=== PATIENT | female | born 2005 | race African-American/Black ===

== ENCOUNTER 2023-08-20 13:22 | Emergency (ER) | payer MEDICAID, SELFPAY ==
[2023-08-20 13:29] VITALS: BP 122/74; BP 124/74; PULSE 82; RESP 14; TEMP 36.3; O2SAT 100; O2SAT 97
--- NOTE | 2023-08-20 14:12 | EKG12_ITS ---
Test Reason : GENERAL Blood Pressure : / mmHG Vent. Rate : 070 BPM Atrial Rate : 070 BPM P-R Int : 150 ms QRS Dur : 102 ms QT Int : 414 ms P-R-T Axes : 036 030 027 degrees QTc Int : 447 ms Normal sinus rhythm with sinus arrhythmia Normal ECG Confirmed by Alli Corona ([id number]), news video editor ANGELA CHENG ([id number]) on 08/21/2023 11:18:47 AM Referred By: Confirmed By:Alli Corona
--- NOTE | 2023-08-20 14:13 | CT_ITS ---
STUDY: CT BRAIN WITHOUT CONTRAST REASON FOR EXAM: Female, 18 years old. Trauma RADIATION DOSAGE (If Supplied By Facility): CTDIvol = ( 44.99 ) mGy, DLP = ( 829.85 ) mGycm TECHNIQUE: Transaxial CT imaging of the brain was performed without administration of intravenous contrast material. Individualized dose optimization techniques were used for this CT. COMPARISON: No relevant prior comparison study available FINDINGS: PARENCHYMA: There is no acute bleed or infarct. There are normal white matter tracts. VENTRICLES: There is no hydrocephalus. MASTOID AIR CELLS AND PARANASAL SINUSES: There bilateral maxillary polyps versus mucous retention cysts, measuring 1.9 cm on the right and 1.0 cm on the left. The visualized paranasal sinuses are clear. The mastoid air cells are clear. BONES: There is no skull fracture. SOFT TISSUES: The visualized soft tissues are within normal limits. CT/Brain/Head without Contrast IMPRESSION: No acute intracranial abnormality. Polyp versus mucous retention cysts in the maxillary sinuses. Electronically Signed: Luciano Rodgers MD at 16:36 EDT ,
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
--- NOTE | 2023-08-20 14:14 | CT_ITS ---
INDICATION: Trauma EXAMINATION: CT CERVICAL SPINE - CT Spine Cervical W/ Contrast Injection TECHNIQUE: Helically acquired images were obtained of the cervical spine. 2D reformatted images were reviewed. A radiation dose optimization technique was used for this scan. IV Contrast dosage and agent: None. RADIATION DOSAGE (If Supplied By Facility): CTDIvol = ( 24.04 ) mGy, DLP = ( 484.84 ) mGycm COMPARISON: FINDINGS: VERTEBRAE: No fracture or traumatic subluxation. No discrete lytic or blastic abnormality. Normal alignment. Normal craniocervical junction and cervicothoracic junction. DISCS and SPINAL CANAL: Disc heights are preserved. No critical stenosis. NECK SOFT TISSUES: No prevertebral soft tissue swelling. There is no cervical adenopathy. LUNG APICES: Clear. CT/Spine Cervical without Contras IMPRESSION: No evidence of acute cervical spinal fracture or spondylolisthesis. Electronically Signed: Cayden Barbosa DO at 17:15 EDT Reading Location ID and State: [facility] / [place] Tel [phone], Service support ,
--- NOTE | 2023-08-20 14:16 | ED.RN ---
NO OLD EKG
[2023-08-20] MEDS: 0.9% Normal Saline (1000mL) 1,000 ML 999 ML IV (14:25)
[2023-08-20] MEDS: fentaNYL 100 MCG/2 ML Ampul 50 MCG IV (14:25)
[2023-08-20] MEDS: Ondansetron 4 MG/2 ML Vial IV (14:25)
[2023-08-20 14:35] LABS: Mucous, Urine 0 SEEN /hpf (<or=2+)
[2023-08-20 14:37] LABS: Color, Urine Yellow (Yellow); Glucose, Dipstick Normal (Normal); Ketone-Dipstick 5 mg/dl (Negative); Leukocyte Esterase-Dipstick 25 /ul (Negative); Nitrite-Dipstick Negative (Negative); Occult Blood-Urine 10 /ul (Negative); Protein-Dipstick 30 mg/dl (Negative); Specific Gravity, Urine 1.025 (1.002-1.030); Urine Bilirubin Dipstick Negative (Negative); Urine Clarity Sl. Cloudy (Clear); Urine Urobilinogen Normal (Normal)
[2023-08-20 14:39] LABS: Absolute Lymphocyte Count 2.02 X10^3/uL (0.83-4.51); Absolute Neutrophil Count 4.7 X10^3/uL (2.0-7.7); Basophil# 0.03 X10^3/uL; Basophil% 0.4 % (0-1); Eosinophil# 0.03 X10^3/uL; Eosinophils% 0.4 % (0-5); Hematocrit 39.2 % (37-47); Hemoglobin 12.5 g/dL (12.0-15.0); Lymphocyte # 2.02 X10^3/ul (0.83-4.51); Lymphocyte % 27.8 % (19-41); Mean Corp Hgb Conc 31.9 g/dL (32-36); Mean Corpuscular Hgb 25.8 pg (27.0-32.0); Mean Platelet Vol. 11.2 fl (6.2-12.0); Monocyte# 0.43 X10^3/uL; Monocyte% 5.9 % (0-10); NRBC Flagged by Analyzer 0 % (0-5); Neutrophil # 4.71 X10^3/uL (2.7-7.7); Neutrophil % 64.9 % (47-70); Platelet Count 204 K/mm3 (150-450); Red Blood Count 4.84 M/mm3 (4.2-5.4); White Blood Count 7.3 K/mm3 (4.4-11.0)
[2023-08-20 14:47] LABS: Bacteria 1+ /hpf (None Seen); Red Blood Cells-Urine 0-5 SEEN /hpf (0-5); Squamous Epithelial Cells - UA 5-10 SEEN /hpf (5-10); White Blood Cells 0-5 SEEN /hpf (0-5)
[2023-08-20 15:00] VITALS: BP 113/79; PULSE 99; RESP 12; O2SAT 98
[2023-08-20 15:00] LABS: Anion Gap 6 (5-15); BUN 8 mg/dL (7-18); BUN/Creat Ratio 9.2 RATIO (10-20); Chloride 110 mmol/L (98-107); Creatinine, Serum 0.87 mg/dL (0.55-1.02); EST Glomerular Filtration Rate 89 mL/min (>60); Est Glom Filt Rate - Afr Amer 107 mL/min (>60); Glucose 90 mg/dL (74-106); Potassium 3.7 mmol/L (3.5-5.1); Sodium Level 142 mmol/L (136-145)
[2023-08-20 15:05] LABS: AST(SGOT) 17 U/L (15-37); Alanine Aminotransfer ALT/SGPT 32 U/L (13-56); Alkaline Phosphatase 94 U/L (45-117); Bilirubin, Direct < 0.05 mg/dL (0.00-0.30); Globulin 3.6 g/dL (2.2-4.2); Protein, Total 7.6 g/dL (6.4-8.2)
[2023-08-20 15:06] LABS: Internal QC Validated? YES +Cl - CLEAR BKGD; Pregnancy, Urine Negative Negative; Record Kit Lot#,Urine Preg HCG0000718086
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
--- NOTE | 2023-08-20 15:55 | RAD_ITS ---
STUDY: X-RAY - LEFT KNEE REASON FOR EXAM: Female, 18 years old. Trauma TECHNIQUE: 4 view(s) of the knee. COMPARISON: None. FINDINGS: There is no evidence of fracture or dislocation. There are no significant degenerative changes. There are no radiodense foreign bodies. RAD/Knee 4 or More Views IMPRESSION: No fracture or dislocation. Electronically Signed: Luciano Rodgers MD at 16:42 EDT ,
[2023-08-20] MEDS: Ketorolac 15 MG/ML Vial IV (16:38)
[2023-08-20 16:41] VITALS: BP 121/81; PULSE 84; RESP 14; TEMP 36.2; O2SAT 100
== END 2023-08-20 16:42 | disposition home or self-care (01) ==
PROVIDERS: Emergency Provider Emergency Medicine; PCP Registered Nurse; Visit Provider Emergency Medicine
DX: S09.90XA Unspecified injury of head, initial encounter (principal); S16.1XXA Strain of muscle, fascia and tendon at neck level, initial encounter; R11.0 Nausea; S80.02XA Contusion of left knee, initial encounter; V59.49XA Driver of pick-up truck or van injured in collision with other motor vehicles in traffic accident, initial encounter; W22.10XA Striking against or struck by unspecified automobile airbag, initial encounter; Y92.410 Unspecified street and highway as the place of occurrence of the external cause
CPT/HCPCS: 70450; 71260; 72125; 73564; 74177; 80048; 80076; 81001; 81025; 85025; 93005; 96361; 96374; 96375; 99284; J7030; Q9967; J2405

== ENCOUNTER → 2024-04-14 | Outpatient (CLI) | payer MEDICAID, SELFPAY ==
--- NOTE | 2024-04-14 18:44 | RAD_ITS ---
STUDY: X-RAY CHEST REASON FOR EXAM: Female, 18 years old. COUGH, SOB, FEVER TECHNIQUE: PA and lateral COMPARISON: None. FINDINGS: Patchy areas of increased density right lower lobe which may be consistent with focal infiltrate. There is no demonstrated pleural abnormality. Normal size heart. Normal mediastinum and david. Normal visualized pulmonary arteries. Normal visualized aortic arch and descending thoracic aorta. Normal visualized thoracic spine. Normal visualized ribs, clavicles, and shoulders. There is no demonstrated abnormality of the visualized soft tissue structures of the upper abdomen. RAD/Chest PA and Lateral IMPRESSION: Mild right lower lobe infiltrate which may be consistent with pneumonia. Electronically Signed: Jabari Salcedo MD at 20:04 [facility] ,
== END | disposition home or self-care (01) ==
LOC: RAD 18:44
PROVIDERS: PCP Registered Nurse; Visit Provider Nurse Practitioner Family
DX: J06.9 Acute upper respiratory infection, unspecified (principal)
CPT/HCPCS: 71046

== ENCOUNTER 2024-04-17 09:40 | Emergency (ER) | payer MEDICAID, SELFPAY ==
[2024-04-17 09:40] VITALS: BP 131/89; BP 142/76; PULSE 121; PULSE 133; RESP 25; RESP 26; TEMP 37.3; O2SAT 93; O2SAT 94; BMI 35.0
[2024-04-17] MEDS: Acetaminophen 500 MG Tablet 1000 MG PO (10:11)
[2024-04-17] MEDS: Ondansetron 4 MG/2 ML Vial IV (10:11)
[2024-04-17] MEDS: 0.9% Normal Saline (1000mL) 1,000 ML 1000 ML IV (10:11)
[2024-04-17 10:16] LABS: Absolute Lymphocyte Count 0.86 X10^3/uL (0.83-4.51); Absolute Neutrophil Count 4.4 X10^3/uL (2.0-7.7); Basophil# 0.02 X10^3/uL; Basophil% 0.3 % (0-1); Eosinophil# 0.07 X10^3/uL; Eosinophils% 1.2 % (0-5); Hematocrit 38.3 % (37-47); Hemoglobin 12.7 g/dL (12.0-15.0); Lymphocyte # 0.86 X10^3/ul (0.83-4.51); Lymphocyte % 14.5 % (19-41); Mean Corp Hgb Conc 33.2 g/dL (32-36); Mean Corpuscular Hgb 25.9 pg (27.0-32.0); Mean Corpuscular Volume 78.2 fL (81-99); Mean Platelet Vol. 11.5 fl (6.2-12.0); Monocyte# 0.53 X10^3/uL; Monocyte% 8.9 % (0-10); NRBC Flagged by Analyzer 0 % (0-5); Neutrophil # 4.43 X10^3/uL (2.7-7.7); Neutrophil % 74.8 % (47-70); Platelet Count 169 K/mm3 (150-450); RBC Distribution Width CV 12.5 % (11.6-14.6); RBC Distribution Width SD 35.3 fl (35.1-43.9); White Blood Count 5.9 K/mm3 (4.4-11.0)
[2024-04-17 10:26] LABS: Internal QC Validated? YES +Cl - CLEAR BKGD; Pregnancy, Serum, hCG Quali. NEGATIVE Negative
[2024-04-17 10:34] LABS: AST(SGOT) 23 U/L (15-37); Alanine Aminotransfer ALT/SGPT 30 U/L (13-56); Albumin, Serum 3.8 g/dL (3.2-5.0); Alkaline Phosphatase 67 U/L (45-117); Anion Gap 6 (5-15); BUN 8 mg/dL (7-18); BUN/Creat Ratio 9.1 RATIO (10-20); Bilirubin, Direct 0.18 mg/dL (0.00-0.30); Calcium,Total 9.1 mg/dL (8.5-10.1); Chloride 105 mmol/L (98-107); Creatinine, Serum 0.88 mg/dL (0.55-1.02); EST Glomerular Filtration Rate 87 mL/min (>60); Est Glom Filt Rate - Afr Amer 105 mL/min (>60); Estimated Creatinine Clearance 120.64 ml/min; Globulin 4.1 g/dL (2.2-4.2); Glucose 103 mg/dL (74-106); Potassium 3.3 mmol/L (3.5-5.1); Protein, Total 7.9 g/dL (6.4-8.2); Sodium Level 135 mmol/L (136-145)
[2024-04-17 11:40] VITALS: BP 120/78; PULSE 86; RESP 16; O2SAT 98
[2024-04-17 11:46] VITALS: BP 120/78; PULSE 86; RESP 16; TEMP 37.2; O2SAT 98
== END 2024-04-17 11:47 | disposition home or self-care (01) ==
PROVIDERS: Emergency Provider Emergency Medicine; PCP Registered Nurse; Visit Provider Emergency Medicine
DX: J18.9 Pneumonia, unspecified organism (principal); R19.7 Diarrhea, unspecified; E86.0 Dehydration; R11.10 Vomiting, unspecified
CPT/HCPCS: 71045; 80048; 80076; 84703; 85025; 87631; 96361; 96374; 99284; J7030; A4216; J2405

== ENCOUNTER 2024-07-15 07:23 | Emergency (ER) | payer MEDICAID, SELFPAY ==
[2024-07-15 07:24] VITALS: BP 132/80; PULSE 86; RESP 16; TEMP 36.2; O2SAT 100; BMI 32.8
--- NOTE | 2024-07-15 07:42 | EDS_ITS ---
HPI History of Present Illness Chief Complaint: Upper Extremity Injury Narrative Narrative: 19-year-old female, [id number], who denies significant past medical history presents with injury to nailbed of her left middle finger. She has acrylic nails applied that are longer in nature. She states that while she was sleeping, she injured her left fingernail. It may have gotten caught on the sheets. It bent her fingernail backwards and partially avulsed the nail on her left middle finger. She states her tetanus immunization is up-to-date. While she states that it was dangling and hanging on by a thread, she and her significant other states that they could see bleeding underneath the nail. She states that she replaced the nail, and applied a Band-Aid and was unsure what else should be done. She denies other injury. [facility] Medical History Anxiety and depression Home Medications ?Medication ?Instructions ?Recorded ?Last Taken ?Type cyclobenzaprine 10 mg tablet 10 mg PO TID PRN Muscle S pasm #20 08/20/23 Unknown Rx TABLETS ibuprofen 600 mg tablet 600 mg PO Q6H PRN PRN pain # 20 08/20/23 Unknown Rx TABLETS ondansetron 4 mg disintegrating 4 mg PO Q8H PRN PRN Na usea #10 tabs 08/20/23 Unknown Rx tablet azithromycin 250 mg tablet See Rx Instructions PO .COM PLEX #6 04/17/24 Unknown Rx (Zithromax Z-Juan) tabs ondansetron 4 mg disintegrating 4 mg PO Q6H PRN PRN Na usea #15 tabs 04/17/24 Unknown Rx tablet Allergy/AdvReac Type Severity Reaction Status Date / Time No Known Allergies Allergy Verified 07/15/24 07:24 Social History Smoking Status: Never smoker ROS ROS ED ROS Narrative Review of systems positive for bleeding and partial nail avulsion of left middle finger. Denies other injury. No other bleeding. EXAM Physical Exam Narrative Exam Narrative: Afebrile. Vital signs noted. Focused physical examination shows the nail and acrylic nail still to be intact over the nailbed. No active bleeding. She is able to flex and extend her left middle finger at the PIP joint especially. No noted active bleeding. Const Vital Signs: 07/15/24 07:24 Temperature 97.2 F L Temperature Source Temporal Pulse Rate 86 Respiratory Rate 16 Blood Pressure 132/80 H Blood Pressure Mean 97 Pulse Ox 100 Oxygen Delivery Method Room Air MDM MDM MDM Narrative Medical decision making narrative: I do not feel the differential diagnosis is applicable in this case. Her nail appears to be well attached and I do not feel that there is simple removal that it could be or should be removed at the bedside as it appears to be still attached to the germinal matrix. I do feel that she probably had a partial nail avulsion, and that is best left with this natural nail left in place to keep the germinal matrix open, with the acrylic nail attached. She will be placed in a aluminum foam finger splint on the dorsum of the left middle finger and wrapped by the RN. She will have a wound check by her primary care provider in the next 5 to 7 days. Return instructions to the emergency department were reviewed. Disposition is discharged home in stable condition. Discharge Plan Triage Chief Complaint: Upper Extremity Injury ED Provider: Will Gross Dx/Rx/DC Orders Clinical Impression: Injury of nail bed of finger of left hand, Avulsion of nail of left middle finger Instructions: ED Detached Fingernail or Toenail Prescriptions: No Action cyclobenzaprine 10 mg tablet 10 mg PO TID PRN (Reason: Muscle Spasm) Qty: 20 0RF ibuprofen 600 mg tablet 600 mg PO Q6H PRN PRN (Reason: pain) Qty: 20 0RF ondansetron 4 mg tablet,disintegrating 4 mg PO Q8H PRN PRN (Reason: Nausea) Qty: 10 0RF azithromycin [Zithromax Z-Juan] 250 mg tablet See Rx Instructions .ROUTE .COMPLEX Qty: 6 0RF Rx Instructions: For 250 mg dose pack: take 500 mg today (day 1), then 250 mg for 4 days (days 2-5) ondansetron 4 mg tablet,disintegrating 4 mg PO Q6H PRN PRN (Reason: Nausea) Qty: 15 0RF Stand Alone Forms: Work Status Form Primary Care Provider: Emilie Bhatt MANAGER IMMUNOLOGY Referrals: Emilie Bhatt MANAGER IMMUNOLOGY, MANAGER IMMUNOLOGY-C [Primary Care Provider] - 5-7 Days Activity Restrictions/Additional Instructions: Keep splint in place for support but you may remove it a few times a day to exercise finger. Have your wound checked by your primary care provider in the next 5 to 7 days. Return with fever, red streaking up your hand, fever, new or worsening symptoms. Print Language: Angolan Disposition Disposition: Home, Self Care Discharge Date/Time: 07/15/24 07:55
== END 2024-07-15 07:55 | disposition home or self-care (01) ==
LOC: ED 07:50
PROVIDERS: Emergency Provider Emergency Medicine; PCP Registered Nurse; Visit Provider Emergency Medicine
DX: S63.253A Unspecified dislocation of left middle finger, initial encounter (principal); X58.XXXA Exposure to other specified factors, initial encounter
CPT/HCPCS: 99283